=== PATIENT | female | born 2000 | race Hispanic/Latino ===

== ENCOUNTER 2021-08-04 09:34 | Outpatient (CLI) | payer OTHER | END 2021-08-04 09:35 | disposition home or self-care (01) | LOC: BICULT 09:34 | PROVIDERS: ATTEND Family Medicine | DX: Z34.02 Encounter for supervision of normal first pregnancy, second trimester (principal); Z3A.22 22 weeks gestation of pregnancy | CPT/HCPCS: 76805 ==

== ENCOUNTER 2022-10-20 18:45 | Inpatient (IN) | payer OTHER ==
[2022-10-20] MEDS ORDERED: Ondansetron PF 4 MG/2 ML Vial ONE ×2 (18:57→22:15)
[2022-10-20 19:18] LABS: #Basophils 0.1 thou/uL (0.0-0.2); #Monocytes 1.3 thou/uL (0.11-0.59); #Neutrophils 17.1 thou/uL (1.40-6.50); %Basophils 0.3 % (0.0-1.0); %Eosinophils 0.1 % (0.0-10.0); %Lymphocytes 19.5 % (21.0-51.0); %Monocytes 5.5 % (0.0-10.0); Hematocrit 39.6 % (36.0-47.0); Hemoglobin 13.8 g/dL (12.0-16.0); Mean Corpuscular HGB CONC 34.8 g/dL (32.0-36.0); Mean Corpuscular Hemoglobin 28.3 pg (27.0-31.0); Mean Corpuscular Volume 81.3 fl (78.0-98.0); Mean Platelet Volume 10.5 fL (7.4-10.4); Platelet Count 371 10x3/uL (130-400); RBC Distribution Width 13.1 % (11.5-14.5); Red Blood Cell (RBC) Count 4.87 mill/uL (4.20-5.40); White Blood Cell (WBC) Count 23.1 10x3/uL (4.8-10.8)
[2022-10-20 19:41] LABS: ALT (SGPT) 555 U/L (8-55); AST (SGOT) 492 U/L (5-34); Albumin 4.3 g/dL (3.5-5.0); Alkaline Phosphatase 136 U/L (40-110); Anion Gap 18 mmol/L (10-20); BUN (Urea Nitrogen) 11 mg/dL (7.0-18.7); Calc. Creatinine Clearance 0 mL/min (70-130); Calcium 10.1 mg/dL (7.8-10.44); Carbon Dioxide 13 mmol/L (22-29); Chloride 109 mmol/L (98-107); Estimated GFR 117; Globulin 3.2 g/dL (2.4-3.5); Glucose 161 mg/dL (70-105); Magnesium 1.6 mg/dL (1.6-2.6); Protein, Total 7.5 g/dL (6.0-8.3); Sodium 137 mmol/L (136-145)
[2022-10-20] MEDS ORDERED: fentaNYL 50 mcg/mL 1 mL Vial ONE (20:03)
[2022-10-20 20:09] LABS: Lipase Greater than 16000 U/L (8-78)
[2022-10-20] MEDS ORDERED: Piperacillin/Tazobactam 4.5 GM VIAL ONE (21:39)
[2022-10-20] MEDS ORDERED: Morphine 4 MG/ML VIAL ONE (21:56)
[2022-10-20] MEDS ORDERED: Promethazine HCl 25 MG/ML VIAL ONE (22:22)
[2022-10-20 22:25] LABS: Lactic Acid 3.5 mmol/L (0.5-2.2)
[2022-10-20 22:51] LABS: Bacteria/HPF None Seen HPF (None Seen); Bilirubin Negative (Negative); Blood, Urine Negative (Negative); CAUTI Indications for Culture Pregnancy; Clarity Clear (Clear); Glucose, Urine (Dipstick) 100 mg/dL (Negative); Ketone, Urine 100 mg/dL (Negative); Leukocyte Negative Leu/uL (Negative); Nitrite Negative (Negative); Protein, Urine (Dipstick) Negative (Neg-Trace); RBC/HPF 0-3 HPF (0-3); Specific Gravity, Urine 1.012 (1.002-1.036); Urobilinogen Normal mg/dL (Less than 2); WBC/HPF 0-3 HPF (0-3)
[2022-10-20 22:52] LABS: Urine Culture Reflex Yes Yes
[2022-10-20] MEDS ORDERED: traMADol HCl 50 MG TAB PO PRN (23:09)
[2022-10-20] MEDS ORDERED: Ipratropium/Albuterol 3 ML NEB NEB PRN (23:09)
[2022-10-20] MEDS ORDERED: TETANUS, DIPHTHERIA TOX,ADULT (TDVAX) 0.5 ML VIAL IM ONE (23:09)
[2022-10-20] MEDS ORDERED: Dextrose 5% in Water 1,000 ML IV PRN ×2 (23:09→23:30)
[2022-10-20] MEDS ORDERED: Promethazine HCl 25 MG/ML VIAL IM PRN (23:09)
[2022-10-20] MEDS ORDERED: Dextrose 50% Abboject 50 ML SYRINGE SLOW IVP PRN ×2 (23:09→23:30)
[2022-10-20] MEDS ORDERED: Glucagon 1 MG/ML KIT IM PRN ×2 (23:09→23:30)
[2022-10-20] MEDS ORDERED: Sodium Chloride 0.9% 1,000 ML IV SCH (23:15)
[2022-10-20] MEDS ORDERED: Acetaminophen 500 MG TAB PO PRN (23:17)
[2022-10-20] MEDS ORDERED: Piperacillin/Tazobactam 3.375 GM in Sodium Chloride 0.9% 100 ML IVPB SCH (23:59)
[2022-10-21] MEDS ORDERED: Morphine 2 MG/ML VIAL ONE ×3 (01:04→05:46)
[2022-10-21] MEDS: Morphine 2 MG/ML VIAL SLOW IVP PRN ×5 (01:05→23:47)
[2022-10-21] MEDS: Sodium Chloride 0.9% 1,000 ML IV SCH ×6 (01:45→21:35)
[2022-10-21 02:59] VITALS: BMI 21.8
[2022-10-21] MEDS ORDERED: Ondansetron PF 4 MG/2 ML Vial ONE ×3 (03:08→12:21)
[2022-10-21] MEDS: Ondansetron PF 4 MG/2 ML Vial IVP PRN ×3 (03:11→23:43)
[2022-10-21] MEDS ORDERED: fentaNYL 50 mcg/mL 1 mL Vial SLOW IVP SCH (04:15)
[2022-10-21] MEDS ORDERED: fentaNYL 50 mcg/mL 1 mL Vial ONE ×4 (04:17→11:28)
[2022-10-21] MEDS: Scopolamine 1.5 mg/72 hour Patch TD SCH (04:20)
[2022-10-21] MEDS ORDERED: Piperacillin/Tazobactam 3.375 GM VIAL ONE ×2 (04:33→12:16)
[2022-10-21] MEDS: Piperacillin/Tazobactam 3.375 GM in Sodium Chloride 0.9% 100 ML IVPB SCH ×3 (04:45→17:39)
[2022-10-21 04:50] LABS: #Monocytes 0.2 thou/uL (0.11-0.59); #Neutrophils 9.8 thou/uL (1.40-6.50); %Basophils 0.1 % (0.0-1.0); %Lymphocytes 5.4 % (21.0-51.0); %Monocytes 2.2 % (0.0-10.0); Hematocrit 37.7 % (36.0-47.0); Hemoglobin 12.5 g/dL (12.0-16.0); Mean Corpuscular HGB CONC 33.2 g/dL (32.0-36.0); Mean Platelet Volume 10.1 fL (7.4-10.4); RBC Distribution Width 13.2 % (11.5-14.5); Red Blood Cell (RBC) Count 4.46 mill/uL (4.20-5.40)
[2022-10-21 04:58] LABS: Mean Corpuscular Volume 84.5 fl (78.0-98.0)
[2022-10-21 04:59] LABS: Platelet Count 239 10x3/uL (130-400); White Blood Cell (WBC) Count 10.7 10x3/uL (4.8-10.8)
[2022-10-21 05:38] LABS: Lipase 1668 U/L (8-78)
[2022-10-21] MEDS: Promethazine HCl 25 MG in Sodium Chloride 0.9% 50 ML IVPB PRN ×2 (05:45→20:14)
[2022-10-21 05:56] LABS: ALT (SGPT) 404 U/L (8-55); AST (SGOT) 226 U/L (5-34); Albumin 3.7 g/dL (3.5-5.0); Alkaline Phosphatase 116 U/L (40-110); Anion Gap 13 mmol/L (10-20); BUN (Urea Nitrogen) 5 mg/dL (7.0-18.7); Calc. Creatinine Clearance 108 mL/min (70-130); Calcium 7.6 mg/dL (7.8-10.44); Carbon Dioxide 15 mmol/L (22-29); Chloride 112 mmol/L (98-107); Estimated GFR 125; Globulin 2.6 g/dL (2.4-3.5); Glucose 172 mg/dL (70-105); Potassium 3.7 mmol/L (3.5-5.1); Protein, Total 6.3 g/dL (6.0-8.3); Sodium 136 mmol/L (136-145)
[2022-10-21] MEDS: fentaNYL 50 mcg/mL 1 mL Vial SLOW IVP SCH ×5 (06:03→19:42)
[2022-10-21] MEDS ORDERED: Iopamidol 15 ML ONE (12:03)
[2022-10-21] MEDS ORDERED: Bupivacaine/Epinephrine 0.25% 30 ML VIAL ONE (12:03)
[2022-10-21] MEDS ORDERED: HYDROmorphone 0.5 MG/0.5 ML SYRINGE ONE (12:07)
[2022-10-21] MEDS ORDERED: SUGAMMADEX SODIUM 200 MG/2 ML VIAL ONE (12:07)
[2022-10-21] MEDS ORDERED: fentaNYL PF 100 MCG/2 ML SYRINGE ONE (12:07)
[2022-10-21] MEDS ORDERED: Dexmedetomidine 200 MCG/2 ML VIAL ONE (12:08)
[2022-10-21] MEDS ORDERED: Sodium Chloride 0.9% 100 ML ONE (12:16)
[2022-10-21] MEDS ORDERED: Midazolam HCl 2 mg/2 ml Vial ONE (12:20)
[2022-10-21] MEDS ORDERED: Rocuronium Bromide 10 MG/ML (10ML VIAL) ONE (12:21)
[2022-10-21] MEDS ORDERED: Dexamethasone 20 MG/5 ML VIAL ONE (12:21)
[2022-10-21] MEDS ORDERED: PROPOFOL 200 MG/20 ML VIAL ONE (12:21)
[2022-10-21] MEDS ORDERED: Esmolol 100 MG/10 ML VIAL ONE (12:21)
[2022-10-21] MEDS ORDERED: Succinylcholine 200 MG/10 ml SYRINGE FS ONE (12:21)
[2022-10-21] MEDS ORDERED: Lidocaine 1% PF 5 ML VIAL ONE (12:21)
[2022-10-21] MEDS ORDERED: Promethazine HCl 25 MG/ML VIAL ONE (14:35)
[2022-10-21] MEDS ORDERED: Acetaminophen/Codeine 30-300mg Tablet PO PRN (14:41)
[2022-10-21] MEDS: Senokot S 8.6-50 MG TAB PO SCH (20:18)
[2022-10-22] MEDS: Sodium Chloride 0.9% 1,000 ML IV SCH ×5 (02:49→21:37)
[2022-10-22] MEDS: Piperacillin/Tazobactam 3.375 GM in Sodium Chloride 0.9% 100 ML IVPB SCH ×3 (02:49→18:04)
[2022-10-22] MEDS: Morphine 2 MG/ML VIAL SLOW IVP PRN ×3 (02:53→08:37)
[2022-10-22] MEDS: Promethazine HCl 25 MG in Sodium Chloride 0.9% 50 ML IVPB PRN ×2 (03:28→10:26)
[2022-10-22] MEDS: Ondansetron PF 4 MG/2 ML Vial IVP PRN ×2 (06:11→21:35)
[2022-10-22 06:34] LABS: %Basophils 0.1 % (0.0-1.0); %Lymphocytes 6.4 % (21.0-51.0); %Monocytes 4.8 % (0.0-10.0); %Neutrophils 88.1 % (42.0-75.0); Hematocrit 35.1 % (36.0-47.0); Hemoglobin 11.7 g/dL (12.0-16.0); Mean Corpuscular HGB CONC 33.3 g/dL (32.0-36.0); Mean Corpuscular Hemoglobin 28.3 pg (27.0-31.0); Mean Corpuscular Volume 84.8 fl (78.0-98.0); Mean Platelet Volume 10.3 fL (7.4-10.4); Platelet Count 206 10x3/uL (130-400); RBC Distribution Width 13.7 % (11.5-14.5); Red Blood Cell (RBC) Count 4.14 mill/uL (4.20-5.40); White Blood Cell (WBC) Count 21.6 10x3/uL (4.8-10.8)
[2022-10-22 06:53] LABS: ALT (SGPT) 251 U/L (8-55); AST (SGOT) 84 U/L (5-34); Albumin 3.3 g/dL (3.5-5.0); Alkaline Phosphatase 95 U/L (40-110); Anion Gap 13 mmol/L (10-20); BUN (Urea Nitrogen) 4 mg/dL (7.0-18.7); Bilirubin, Total 0.6 mg/dL (0.2-1.2); Calc. Creatinine Clearance 120 mL/min (70-130); Carbon Dioxide 19 mmol/L (22-29); Chloride 107 mmol/L (98-107); Estimated GFR 129; Globulin 2.6 g/dL (2.4-3.5); Glucose 112 mg/dL (70-105); Potassium 2.8 mmol/L (3.5-5.1); Protein, Total 5.9 g/dL (6.0-8.3); Sodium 136 mmol/L (136-145)
[2022-10-22] MEDS ORDERED: Magnesium 2 GM/50 ML(in water) 2 GM in Premix Bag 1 BAG IVPB SCH (08:30)
[2022-10-22] MEDS: Polyethylene Glycol 3350 17 GM Packet PO SCH (10:25)
[2022-10-22] MEDS: Senokot S 8.6-50 MG TAB PO SCH ×2 (10:25→20:46)
[2022-10-22] MEDS: Metoclopramide HCl 10 MG TAB PO SCH ×3 (12:00→20:16)
[2022-10-22] MEDS: Potassium Chloride 20 MEQ in Premix Bag 1 BAG IVPB SCH ×2 (12:00→14:20)
[2022-10-22] MEDS ORDERED: Cyclobenzaprine 10 MG TAB PO PRN (13:05)
[2022-10-22] MEDS ORDERED: traMADol HCl 50 MG TAB PO SCH (13:15)
[2022-10-22] MEDS ORDERED: Iopamidol-370 76% 500 ML MDV (1 ML CHARGE) ONE (13:48)
[2022-10-22] MEDS: Acetaminophen/Codeine 30-300mg Tablet PO SCH ×3 (14:20→20:45)
[2022-10-22 14:36] LABS: Anion Gap 12 mmol/L (10-20); BUN (Urea Nitrogen) 4 mg/dL (7.0-18.7); Calc. Creatinine Clearance 135 mL/min (70-130); Calcium 8.1 mg/dL (7.8-10.44); Carbon Dioxide 19 mmol/L (22-29); Chloride 106 mmol/L (98-107); Estimated GFR 132; Glucose 102 mg/dL (70-105); Magnesium 2.5 mg/dL (1.6-2.6); Potassium 3.2 mmol/L (3.5-5.1); Sodium 134 mmol/L (136-145)
[2022-10-23] MEDS: Piperacillin/Tazobactam 3.375 GM in Sodium Chloride 0.9% 100 ML IVPB SCH (01:54)
[2022-10-23] MEDS: Promethazine HCl 25 MG in Sodium Chloride 0.9% 50 ML IVPB PRN (01:55)
[2022-10-23] MEDS: Acetaminophen/Codeine 30-300mg Tablet PO SCH ×2 (01:55→05:58)
[2022-10-23] MEDS: Sodium Chloride 0.9% 1,000 ML IV SCH (03:01)
[2022-10-23 05:43] LABS: Anion Gap 11 mmol/L (10-20); BUN (Urea Nitrogen) Less than 4 mg/dL (7.0-18.7); Calc. Creatinine Clearance 151 mL/min (70-130); Calcium 7.8 mg/dL (7.8-10.44); Carbon Dioxide 17 mmol/L (22-29); Chloride 110 mmol/L (98-107); Estimated GFR 136; Glucose 103 mg/dL (70-105); Magnesium 2.2 mg/dL (1.6-2.6); Sodium 135 mmol/L (136-145)
[2022-10-23 05:52] LABS: #Monocytes 0.9 thou/uL (0.11-0.59); #Neutrophils 14.8 thou/uL (1.40-6.50); %Basophils 0.1 % (0.0-1.0); %Lymphocytes 6.6 % (21.0-51.0); %Monocytes 5.5 % (0.0-10.0); %Neutrophils 86.2 % (42.0-75.0); Hematocrit 32.1 % (36.0-47.0); Hemoglobin 10.9 g/dL (12.0-16.0); Mean Corpuscular Hemoglobin 28.5 pg (27.0-31.0); Mean Platelet Volume 10.8 fL (7.4-10.4); Platelet Count 164 10x3/uL (130-400); RBC Distribution Width 13.5 % (11.5-14.5); Red Blood Cell (RBC) Count 3.82 mill/uL (4.20-5.40); White Blood Cell (WBC) Count 17.2 10x3/uL (4.8-10.8)
[2022-10-23] MEDS: Metoclopramide HCl 10 MG TAB PO SCH ×4 (05:58→21:46)
[2022-10-23] MEDS ORDERED: Potassium Chloride 20 MEQ TAB PO SCH (08:45)
[2022-10-23] MEDS ORDERED: Amoxicillin/Potassium Clav 875 MG TAB PO SCH (09:00)
[2022-10-23] MEDS: Polyethylene Glycol 3350 17 GM Packet PO SCH (09:24)
[2022-10-23] MEDS: Senokot S 8.6-50 MG TAB PO SCH ×2 (09:24→21:47)
[2022-10-23] MEDS ORDERED: Acetaminophen/Codeine 30-300mg Tablet PO SCH (12:00)
[2022-10-23] MEDS: Ondansetron PF 4 MG/2 ML Vial IVP PRN (12:22)
[2022-10-23] MEDS ORDERED: traMADol HCl 50 MG TAB PO PRN (14:20)
[2022-10-23] MEDS ORDERED: Acetaminophen 500 MG TAB PO SCH (14:30)
[2022-10-23] MEDS: Acetaminophen 500 MG TAB PO SCH (21:47)
[2022-10-24] MEDS: Ondansetron PF 4 MG/2 ML Vial IVP PRN (04:35)
[2022-10-24] MEDS: Acetaminophen 500 MG TAB PO SCH ×2 (04:36→10:07)
[2022-10-24] MEDS: Scopolamine 1.5 mg/72 hour Patch TD SCH (04:36)
[2022-10-24] MEDS: Metoclopramide HCl 10 MG TAB PO SCH ×2 (07:00→12:51)
[2022-10-24] MEDS: Senokot S 8.6-50 MG TAB PO SCH (10:07)
[2022-10-24] MEDS: Polyethylene Glycol 3350 17 GM Packet PO SCH (10:07)
[2022-10-24 12:50] VITALS: BP 124/82; TEMP 98.7
== END 2022-10-24 14:32 | disposition home or self-care (01) | DRG 817 ==
LOC: ERS 18:45 → ERHOLD 23:30 → SURG A 10-21 10:31
PROVIDERS: ADMIT Internal Medicine; ATTEND Internal Medicine
PROC: 0FT44ZZ Resection of Gallbladder, Percutaneous Endoscopic Approach (ICD-10-PCS; principal; 2022-10-21)
PROC: BF13YZZ Fluoroscopy of Gallbladder and Bile Ducts using Other Contrast (ICD-10-PCS; 2022-10-21)
PROC: 3E033XZ Introduction of Vasopressor into Peripheral Vein, Percutaneous Approach (ICD-10-PCS; 2022-10-21)
DX: O99.612 Diseases of the digestive system complicating pregnancy, second trimester (principal); K85.90 Acute pancreatitis without necrosis or infection, unspecified; K80.66 Calculus of gallbladder and bile duct with acute and chronic cholecystitis without obstruction; R74.01 Elevation of levels of liver transaminase levels; K82.8 Other specified diseases of gallbladder; Z98.891 History of uterine scar from previous surgery; Z3A.16 16 weeks gestation of pregnancy
CPT/HCPCS: 36415; 36416; 47532; 72193; 76705; 76856; 80048; 80053; 81001; 83605; 83690; 83735; 84144; 84702; 85025; 86900; 86901; 87086; 88304; 96361; 96365; 96375; 96376; C1889; J1100; J1170; J2250; J2270; J2272; J2405; J2543; J2550; J2704; J3010; J3475; J3480; J3490; J7050; Q9967